=== PATIENT | female | born 1965 | race Two or more races ===

== ENCOUNTER 2018-06-08 09:31 | Outpatient (CLI) | payer OTHER | END 2018-06-08 09:34 | disposition home or self-care (01) | LOC: SONOGRAMA 09:31 | DX: E04.1 Nontoxic single thyroid nodule (principal) ==

== ENCOUNTER → 2018-08-31 | Outpatient (CLI) | payer OTHER | END | disposition home or self-care (01) | LOC: SONOGRAMA 09:06 | DX: E04.1 Nontoxic single thyroid nodule (principal) ==

== ENCOUNTER 2018-10-08 08:54 | Outpatient (CLI) | payer OTHER ==
[~2018-10-08] VITALS: Ht 170.2 cm; Wt 68.0 kg
== END 2018-10-08 09:15 | disposition home or self-care (01) ==
LOC: OFIC 805 08:54
DX: C73 Malignant neoplasm of thyroid gland (principal); R49.0 Dysphonia

== ENCOUNTER 2018-10-15 09:09 | Outpatient (CLI) | payer OTHER ==
[~2018-10-15] VITALS: Ht 152.4 cm; Wt 72.6 kg
== END 2018-10-15 09:25 | disposition home or self-care (01) ==
LOC: OFIC 805 09:09
DX: C73 Malignant neoplasm of thyroid gland (principal); R49.0 Dysphonia

== ENCOUNTER 2018-11-17 05:55 | Inpatient (IN) | payer OTHER ==
[~2018-11-17] VITALS: Ht 172.7 cm; Wt 68.0 kg
[~2018-11-17 05:55] MED LIST: LEVOTHYROXINE25 MCG PO; TAMOXIFEN CITRA20 MG PO
== END 2018-11-18 08:00 | disposition home or self-care (01) | DRG 627 ==
LOC: CIR.AMB 05:55 → SURG 13:37 → O/R 13:37 → SURG 13:58
PROVIDERS: ADMIT Otolaryngology
PROC: 07T20ZZ Resection of Left Neck Lymphatic, Open Approach (ICD-10-PCS; 2018-11-17)
PROC: 07T10ZZ Resection of Right Neck Lymphatic, Open Approach (ICD-10-PCS; 2018-11-17)
PROC: 0GTH0ZZ Resection of Right Thyroid Gland Lobe, Open Approach (ICD-10-PCS; principal; 2018-11-17 07:00)
DX: C73 Malignant neoplasm of thyroid gland (principal); R49.0 Dysphonia

== ENCOUNTER 2018-11-26 15:22 | Outpatient (CLI) | payer OTHER ==
[~2018-11-26] VITALS: Ht 152.4 cm; Wt 68.0 kg
== END 2018-11-26 15:40 | disposition home or self-care (01) ==
LOC: OFIC 805 15:22
DX: C73 Malignant neoplasm of thyroid gland (principal); R49.0 Dysphonia

== ENCOUNTER 2019-01-05 09:17 | Outpatient (CLI) | payer OTHER ==
[~2019-01-05] VITALS: Ht 152.4 cm; Wt 68.0 kg
== END 2019-01-05 09:27 | disposition home or self-care (01) ==
LOC: OFIC 805 09:17
DX: C73 Malignant neoplasm of thyroid gland (principal); R49.0 Dysphonia

== ENCOUNTER 2019-01-12 08:06 | Outpatient (CLI) | payer OTHER ==
[~2019-01-12] VITALS: Ht 152.4 cm; Wt 68.0 kg
== END 2019-01-12 13:39 | disposition home or self-care (01) ==
LOC: OFIC 805 08:06
DX: C73 Malignant neoplasm of thyroid gland (principal); R49.0 Dysphonia

== ENCOUNTER 2019-02-11 11:19 | Outpatient (CLI) | payer OTHER | END 2019-02-11 11:37 | disposition home or self-care (01) | LOC: NUCLEAR 11:19 | DX: C73 Malignant neoplasm of thyroid gland (principal); E89.0 Postprocedural hypothyroidism | CPT/HCPCS: 79005; A9517 ==

== ENCOUNTER 2019-02-15 15:10 | Outpatient (CLI) | payer OTHER | END 2019-02-15 15:40 | disposition home or self-care (01) | LOC: NUCLEAR 15:10 | DX: C73 Malignant neoplasm of thyroid gland (principal); E89.0 Postprocedural hypothyroidism ==

== ENCOUNTER 2020-02-18 11:00 | Outpatient (CLI) | payer OTHER | END 2020-02-18 12:00 | disposition home or self-care (01) | LOC: NUCLEAR 11:00 | PROVIDERS: ATTEND Internal Medicine Sports Medicine | DX: C73 Malignant neoplasm of thyroid gland (principal) | CPT/HCPCS: 78018; 78020; A9528 ==